=== PATIENT | female | born 1950 | race Caucasian/White ===

== ENCOUNTER 2017-03-03 10:22 | Emergency (ER) | payer OTHER ==
[~2017-03-03] VITALS: Ht 162.6 cm; Wt 68.9 kg
[~2017-03-03 10:22] MED LIST: ALEN70TA45 PO; ASPI-991 PO; BLOO-129 IN; ERGO500047 PO; ESCI10TA PO; GLYB5TAB7 PO; ISOS30TA6 PO; LISI40TA4 PO; MECL12.5 PO; METF500T4 PO; MONT10TA22 PO; NAPR500T3 PO; OMEP40CA37 PO; SIMV20TA6 PO; VALS1TAB6 PO
--- NOTE | 2017-03-03 10:25 | NUR ---
pt to ed room 02. [id number] from home: nausea, vomiting, dizziness, francy blood pressure since early am. a/a/o. side rails up. hob elevated. connected to moniotr. changed to gown. awaiting for md vyas.
--- NOTE | 2017-03-03 10:26 | NUR ---
DR NEWTON AT BEDSIDE FOR EVAL
--- NOTE | 2017-03-03 10:30 | NUR ---
L AC G 18 IV STARTED. BLOOD TEST SDRAWN AND SEND TO LAB.
[2017-03-03] MEDS ORDERED: ONDANSETRON HCL/PF 4 MG/2 ML VIAL ONE (10:40)
--- NOTE | 2017-03-03 10:43 | NUR ---
pt unable to provide with urine sample at this time. will try later.
[2017-03-03 10:47] LABS: BASOPHILS % (AUTO) 0.6 % (0.0-2.0); EOSINOPHILS # (AUTO) 0.1 /CMM (0.0-0.7); EOSINOPHILS % (AUTO) 1.7 % (0.0-6.0); HEMATOCRIT 44 % (33-45); HEMOGLOBIN 14.7 g/dL (11.5-14.8); LYMPHOCYTES # (AUTO) 1.6 /CMM (0.8-4.8); LYMPHOCYTES % (AUTO) 23.4 % (20.0-44.0); MEAN CORPUSCULAR HEMOGLOBIN 29 PG (26.0-33.0); MEAN CORPUSCULAR HGB CONC 33 g/dl (31.0-36.0); MEAN CORPUSCULAR VOLUME 88 fL (82-100); MONOCYTES # (AUTO) 0.4 /CMM (0.1-1.30); MONOCYTES % (AUTO) 6.2 % (2.0-12.0); NEUTROPHILS # (AUTO) 4.5 /CMM (1.8-8.9); NEUTROPHILS % (AUTO) 68.1 % (43.0-81.0); PLATELET COUNT (AUTO) 207 /CMM (150-450); RED BLOOD CELL COUNT(AUTO) 5.02 MIL/uL (4.0-5.2); WHITE BLOOD COUNT (AUTO) 6.6 K/uL (4.3-11.0)
[2017-03-03 10:56] LABS: CALCIUM, SERUM 9.1 mg/dL (8.5-10.1); CREATININE 0.7 mg/dL (0.6-1.3)
[2017-03-03] MEDS ORDERED: DIAZEPAM 5 MG/ML 2 ML DISP.SYRIN ONE (10:58)
[2017-03-03] MEDS ORDERED: DIAZEPAM 5 MG/ML 2 ML DISP.SYRIN IV ONE (11:00)
[2017-03-03] MEDS ORDERED: hydrALAZINE HCL IV 20 MG VIAL IV ONE (11:00)
[2017-03-03] MEDS ORDERED: ONDANSETRON HCL/PF 4 MG/2 ML VIAL IVP ONE (11:00)
[2017-03-03] MEDS ORDERED: hydrALAZINE HCL IV 20 MG VIAL ONE (11:01)
[2017-03-03 11:02] LABS: ALBUMIN 4.1 g/dL (3.4-5.0); BILIRUBIN,DIRECT 0.3 mg/dL (0.0-0.2); BILIRUBIN,TOTAL 0.9 mg/dL (0.2-1.0); TOTAL PROTEIN, SERUM 8.1 g/dL (6.4-8.2)
--- NOTE | 2017-03-03 11:38 | NUR ---
URINE SAMPLE OBTAINED FROM PATIENT AND SEND TO LAB.
[2017-03-03 11:48] LABS: APPEARANCE,URINE Clear (CLEAR); BILIRUBIN,URINE Negative (NEGATIVE); BLOOD, URINE Negative Ery/uL (NEGATIVE); COLOR,URINE Yellow (YELLOW); KETONES,URINE Negative (NEGATIVE); LEUKOCYTE ESTERASE ,URINE Negative (NEGATIVE); NITRITE, URINE Negative (NEGATIVE); PH,URINE 8.5 (5.0-8.0); PROTEIN,URINE Negative (NEGATIVE); UGLUCOSE Negative (NEGATIVE); UROBILINOGEN,URINE 0.2 EU/dL (0.2)
--- NOTE | 2017-03-03 12:17 | NUR ---
Patient is resting comfortably in bed with eyes closed. Easily aroused. VSS.
--- NOTE | 2017-03-03 12:34 | NUR ---
IV removed. Catheter intact and site benign. Pressure and 4x4 applied to site. No bleeding noted.Patient discharged to home in stable condition. Written and verbal after care instructions given. Patient verbalizes understanding of instruction.
[2017-03-03 12:35] VITALS: BP 161/90
== END 2017-03-03 12:36 | disposition home or self-care (01) ==
LOC: ER 10:25
DX: R42 Dizziness and giddiness (principal); I10 Essential (primary) hypertension; E11.9 Type 2 diabetes mellitus without complications; Z79.82 Long term (current) use of aspirin; Z88.0 Allergy status to penicillin
CPT/HCPCS: 36415; 80048; 80076; 81001; 83690; 85025; 93005; 96374; 96375; 99285; A4606; J0360; J2405; J3360; Z7610; 81000-TC

== ENCOUNTER 2022-06-25 22:01 | Emergency (ER) | payer MEDICARE, OTHER ==
[~2022-06-25] VITALS: Ht 154.9 cm; Wt 65.8 kg
[~2022-06-25 22:01] MED LIST changes: -ALEN70TA45 PO; +ALEN70TA80 PO; +ASPI-1420 PO; -ASPI-991 PO; +ERGO500040 PO; -ERGO500047 PO; -ISOS30TA6 PO; +ISOS30TA86 PO; +LISI40TA13 PO; -LISI40TA4 PO; +METF-440 PO; -METF500T4 PO; +NAPR-1009 PO; -NAPR500T3 PO; +OMEP40CA21 PO; -OMEP40CA37 PO; +SIMV-46 PO; -SIMV20TA6 PO
[2022-06-25 22:13] VITALS: BP 123/53
--- NOTE | 2022-06-25 22:20 | NUR ---
TO ER BED 1. BIBFAMILY. FOR R UPPER ARM AND R SHOULDER PAIN S/P FALL. PT DENIES HEAD TRAUMA. DENIES KO. PT IS ALERT AND ORIENTED. RR EVEN AND NON LABORED. CONNECTED TO MONITOR. AWAITING MD SHARMA
[2022-06-25] MEDS ORDERED: ONDANSETRON 4 MG TAB.RAPDIS ONE (22:22)
[2022-06-25] MEDS ORDERED: HYDROCODONE/APAP 10/325MG TABLET ONE (22:22)
[2022-06-25] MEDS ORDERED: ACETAMINOPHEN ES 500 MG TABLET ONE (22:28)
[2022-06-25] MEDS ORDERED: ONDANSETRON 4 MG TAB.RAPDIS SL ONE (22:30)
[2022-06-25] MEDS ORDERED: ACETAMINOPHEN 325 MG TABLET PO ONE (22:30)
[2022-06-25] MEDS ORDERED: HYDROCODONE/APAP 10/325MG TABLET PO ONE (22:30)
--- NOTE | 2022-06-25 22:41 | NUR ---
XRAY AT BEDSIDE
--- NOTE | 2022-06-25 23:33 | NUR ---
Patient discharged to home in stable condition. Written and verbal after care instructions given. Patient verbalizes understanding of instruction. Pt ambulatory with a steady gait
== END 2022-06-25 23:50 | disposition home or self-care (01) ==
LOC: ER 22:05
DX: S42.251A Displaced fracture of greater tuberosity of right humerus, initial encounter for closed fracture (principal); I10 Essential (primary) hypertension; E11.9 Type 2 diabetes mellitus without complications; Z88.0 Allergy status to penicillin; Z79.899 Other long term (current) drug therapy; W01.0XXA Fall on same level from slipping, tripping and stumbling without subsequent striking against object, initial encounter; Y93.89 Activity, other specified; Y92.89 Other specified places as the place of occurrence of the external cause; Y99.8 Other external cause status
CPT/HCPCS: 73030-TC; 73060-TC; Q0162